=== PATIENT | female | born 1975 | race Caucasian/White ===

== ENCOUNTER 2022-06-07 14:29 | Emergency (ER) | payer OTHER ==
[~2022-06-07] VITALS: Ht 172.7 cm; Wt 90.9 kg
[2022-06-07 14:46] VITALS: BP 140/85
[2022-06-07] MEDS ORDERED: LIDOcaine 1% 30ml preserv. free vial IJ ONE (15:15)
[2022-06-07] MEDS ORDERED: TETanus/Pertussis (Acell)/Diphther VAC/PF (Tdap-Adult) 0.5ml syringe IMVAC ONE (15:15)
== END 2022-06-07 17:25 | disposition home or self-care (01) ==
LOC: ER 14:31
DX: S99.822A Other specified injuries of left foot, initial encounter (principal); X58.XXXA Exposure to other specified factors, initial encounter; Y93.89 Activity, other specified; Y92.89 Other specified places as the place of occurrence of the external cause; Y99.8 Other external cause status
CPT/HCPCS: 73660; 90471; 90715; 99283; L3260; A6449